=== PATIENT | male | born 1955 | race Caucasian/White ===

== ENCOUNTER 2017-07-25 12:17 | Emergency (ER) | payer BC ==
[~2017-07-25] VITALS: Ht 175.3 cm; Wt 129.5 kg
[~2017-07-25 12:17] MED LIST: BENICAR; COREG 3.123.125 MG/T PO; MEDROL 4MG DOSPA4 MG PO; NABUMETONE; NORVASC; NORVASC 10MG10 MG PO; PERCOCET 325 MG1 TA2 PO; PERCOCET 325 MG1 TAB PO; PLAQUENIL 200M200 MG PO; [UNRECOGNIZED DRUG - OTHER]
[2017-07-25 12:22] VITALS: TEMP 98.1
[2017-07-25 13:03] LABS: BASO % 0.6 % (0.0-2.0); EOS # 0.5 (0.0-0.7); EOS % 7.5 % (0-4.0); GRAN # 3.2 (1.4-6.5); GRAN % 48.6 % (42.2-75.2); HEMATOCRIT 47.8 % (42.0-52.0); LYMPH # 2.1 (1.2-3.4); LYMPH % 31.6 % (20.0-51.0); MEAN CELL VOLUME 96 fl (80.0-100.0); MEAN CORPUSCULAR HEMOGLOBIN 34 pg (27.0-31.0); MEAN CORPUSCULAR HGB CONC 36 g/dl (33.0-37.0); MEAN PLATELET VOLUME 10.7 fl (7.4-10.4); MONO # 0.7 (0.1-0.6); MONO % 11.1 % (1.7-9.3); PLATELET COUNT 142 K/mm3 (130-400); RED BLOOD COUNT 4.98 M/mm3 (4.20-5.60); REDCELL DISTRIBUTION WIDTH-CV 12.4 % (11.5-14.5)
[2017-07-25 13:11] LABS: PARTIAL THROMBOPLASTIN TIME 21.8 SECONDS (26.0-37.0)
[2017-07-25 13:13] LABS: ALANINE AMINOTRANSFERASE 51 U/L (21-72); ALBUMIN 4.6 gm/dL (3.5-5.0); ALKALINE PHOSPHATASE 102 U/L (50-136); ANION GAP 12 mmol/L (7-16); AST,SGOT 40 U/L (15-37); BILIRUBIN,TOTAL 1.1 mg/dL (0.0-1.0); BLOOD UREA NITROGEN 18 mg/dL (9-20); CALCIUM 9.8 mg/dL (8.4-10.2); CARBON DIOXIDE 25 mmol/L (22-30); CHLORIDE 104 mmol/L (98-107); CREATININE, serum 1.03 mg/dL (0.66-1.25); GLUCOSE 114 mg/dL (74-106); POTASSIUM 3.9 mmol/L (3.4-5.0); SODIUM 141 mmol/L (137-145); TOTAL PROTEIN 8.6 gm/dL (6.4-8.2)
[2017-07-25 13:33] LABS: TROPONIN-I < 0.012 ng/mL (0.000-0.034)
[2017-07-25 14:15] VITALS: BP 154/84; PULSE 71
== END 2017-07-25 14:16 | disposition home or self-care (01) ==
LOC: COL.ER 12:17
PROVIDERS: Family Medicine
DX: R07.89 Other chest pain (principal); I10 Essential (primary) hypertension; E78.5 Hyperlipidemia, unspecified

== ENCOUNTER → 2018-12-19 | Outpatient (CLI) | payer BC | LOC: COL.RAD 13:30 | DX: N43.3 Hydrocele, unspecified (principal) ==

== ENCOUNTER 2020-10-21 10:14 | Emergency (ER) | payer BC ==
[~2020-10-21] VITALS: Ht 175.3 cm; Wt 122.7 kg
[2020-10-21 10:22] VITALS: TEMP 98.2
[2020-10-21 10:59] LABS: COLLECTION METHOD CLEAN CATCH
[2020-10-21 11:02] LABS: BASO % 0.6 % (0.0-2.0); EOS # 0.2 (0.0-0.7); EOS % 3.9 % (0-4.0); GRAN # 3.5 (1.4-6.5); GRAN % 65.4 % (42.2-75.2); HEMATOCRIT 47.6 % (42.0-52.0); HEMOGLOBIN 16.5 g/dl (13.5-18.0); LYMPH # 1.1 (1.2-3.4); LYMPH % 19.9 % (20.0-51.0); MEAN CELL VOLUME 95 fl (80.0-100.0); MEAN CORPUSCULAR HEMOGLOBIN 33 pg (27.0-31.0); MEAN CORPUSCULAR HGB CONC 35 g/dl (33.0-37.0); MEAN PLATELET VOLUME 10.7 fl (7.4-10.4); MONO # 0.5 (0.1-0.6); MONO % 9.5 % (1.7-9.3); PLATELET COUNT 165 K/mm3 (130-400); RED BLOOD COUNT 5.02 M/mm3 (4.20-5.60); REDCELL DISTRIBUTION WIDTH-CV 12.8 % (11.5-14.5)
[2020-10-21 11:07] LABS: PH 8 (5-8); SQUAMOUS EPITHELIAL None Seen /hpf; URINE APPEARANCE Clear; URINE BACTERIA None Seen /hpf; URINE BILIRUBIN Negative (NEGATIVE); URINE BLOOD Negative (NEGATIVE); URINE COLOR Straw; URINE GLUCOSE Negative (NEGATIVE); URINE KETONE Negative (NEGATIVE); URINE LEUKOCYTE ESTERASE Negative (NEGATIVE); URINE NITRATE Negative (NEGATIVE); URINE PROTEIN(semi-quant) 2+ (NEGATIVE); URINE RBC 0-2 /hpf; URINE UROBILINOGEN Negative (NEGATIVE)
[2020-10-21 11:21] LABS: ALANINE AMINOTRANSFERASE 35 U/L (4-49); ALBUMIN 4.3 gm/dL (3.5-5.0); ALKALINE PHOSPHATASE 108 U/L (50-136); ANION GAP 10 mmol/L (7-16); AST,SGOT 37 U/L (15-37); BILIRUBIN,TOTAL 1.5 mg/dL (0.0-1.0); BLOOD UREA NITROGEN 15 mg/dL (9-20); CALCIUM 9.3 mg/dL (8.4-10.2); CARBON DIOXIDE 25 mmol/L (22-30); CHLORIDE 102 mmol/L (98-107); CREATININE, serum 0.95 (0.66-1.25); GLUCOSE 162 mg/dL (74-106); POTASSIUM 3.9 mmol/L (3.4-5.0); SODIUM 138 mmol/L (137-145); TOTAL PROTEIN 9.3 gm/dL (6.4-8.2)
[2020-10-21 11:23] LABS: C-REACTIVE PROTEIN < 0.5 mg/dL (0.0-0.9)
[2020-10-21 11:44] LABS: TROPONIN-I < 0.012 ng/mL (0.000-0.035)
[2020-10-21] MEDS ORDERED: PERCOCET 325 MG1 TA2 PO (12:40)
[2020-10-21 12:57] VITALS: BP 158/79; PULSE 97
== END 2020-10-21 13:44 | disposition home or self-care (01) ==
LOC: COL.ER 10:14
PROVIDERS: Nurse Practitioner
DX: R10.31 Right lower quadrant pain (principal); N40.0 Benign prostatic hyperplasia without lower urinary tract symptoms; R11.0 Nausea; I10 Essential (primary) hypertension
CPT/HCPCS: J0360; J1170; J2405; J7030; Q9967

== ENCOUNTER → 2021-11-20 | Outpatient (CLI) | payer MEDICARE | LOC: DIA.ED 09:30 | DX: E11.65 Type 2 diabetes mellitus with hyperglycemia (principal); Z79.84 Long term (current) use of oral hypoglycemic drugs; I10 Essential (primary) hypertension; E78.5 Hyperlipidemia, unspecified | CPT/HCPCS: G0108 ==

== ENCOUNTER → 2021-12-20 | Outpatient (CLI) | payer MEDICARE | LOC: DIA.ED 08:18 | DX: E11.65 Type 2 diabetes mellitus with hyperglycemia (principal); Z79.84 Long term (current) use of oral hypoglycemic drugs; E78.5 Hyperlipidemia, unspecified; I10 Essential (primary) hypertension | CPT/HCPCS: G0108 ==

== ENCOUNTER 2022-03-22 22:17 | Emergency (ER) | payer SELFPAY ==
[~2022-03-22] VITALS: Ht 175.3 cm; Wt 121.4 kg
[2022-03-22 22:33] VITALS: TEMP 98.6
[2022-03-22] MEDS ORDERED: NORCO 325 MG-51 TAB PO (23:24)
[2022-03-22 23:53] VITALS: BP 124/70; PULSE 68
== END 2022-03-22 23:53 | disposition home or self-care (01) ==
LOC: COL.ER 22:17
DX: S22.42XA Multiple fractures of ribs, left side, initial encounter for closed fracture (principal); W18.30XA Fall on same level, unspecified, initial encounter; W22.8XXA Striking against or struck by other objects, initial encounter
CPT/HCPCS: A9284; J1885

== ENCOUNTER 2022-07-27 15:31 | Emergency (ER) | payer SELFPAY ==
[~2022-07-27] VITALS: Ht 177.8 cm; Wt 118.2 kg
[~2022-07-27 15:31] MED LIST changes: +NORCO 325 MG-51 TAB PO
[2022-07-27 15:54] VITALS: TEMP 97.6
[2022-07-27 19:26] VITALS: BP 140/78; PULSE 112
== END 2022-07-27 19:26 | disposition home or self-care (01) ==
LOC: COL.ER 15:31
DX: S06.0X0A Concussion without loss of consciousness, initial encounter (principal); S00.01XA Abrasion of scalp, initial encounter; W01.198A Fall on same level from slipping, tripping and stumbling with subsequent striking against other object, initial encounter; Y93.01 Activity, walking, marching and hiking

== ENCOUNTER 2023-09-20 12:44 | Emergency (ER) | payer MEDICARE ==
[~2023-09-20] VITALS: Ht 175.3 cm; Wt 106.8 kg
[~2023-09-20 12:44] MED LIST changes: +ASPI325T6 PO; +ASPIRIN 81M81 MG/TA2 PO; +CELEBREX 200MG200 MG PO; +CERTAVITE SENI1 EACH PO; +COMTAN 200MG T200 MG PO; +COREG 6.256.25 MG/TA PO; +CUBICIN 500MG500 MG IV; +FLOMAX 0.40.4 MG/CAP PO; +FOLIC ACID 11 MG/TA1 PO; +GLUCOPHAGE500 MG/TAB PO; +HCTZ 25MG TAB25 MG PO; +MASON NATURAL2000 IU PO; +METHOTREXA2.5 MG/TAB PO; +NORMAL SALINE FL1 ML IV; +PRISTIQ 50 MG T50 MG PO; +PROTONIX 40MG T40 MG PO; +SINEMET 25/101 UDTAB PO; +TYLENOL 500MG500 MG PO; +ULTRAM 50MG TAB50 MG PO; +VANCO 1.51.5 GM/250 IV; +VANCOCIN HCL1 GM IV; +VIIBRYD40 MG PO; +WALKER MC; +ZITHROMAX Z PA250 MG PO
[2023-09-20 12:57] VITALS: TEMP 97.7
--- NOTE | 2023-09-20 14:11 | NUR ---
forensic social worker recieved a call from TIAN Burrows to speak with pt and about resources due to fall from increased weakness related to Parkinson's Disease. SW met with pt and at bedside. Pt reports he is already connected with the outpatient Parkinson's program through [facility] for ST and PT. had further questions about available resources. SW discussed Home Health, SNF, LTC, or assisted living as the wide range. They declined HH after SW provided additional information. They report to just wanting to be aware of all options. SW discussed private duty or companionship options. SW stated that [facility] offers this, so they can discuss with the department when they attend their program there. SW provided information on [employer] as stated the fall outside occurred when she was not home. showed SW pt's phone and how it was changed to be more accessible in an urgent situation. SW provided situations where [employer] could be helpful. said she would consider this. Pt and did not want resources at this time, just information to make note of.
[2023-09-20 14:16] VITALS: BP 132/71; PULSE 71
== END 2023-09-20 14:18 | disposition home or self-care (01) ==
LOC: COL.ER 12:44
DX: S09.90XA Unspecified injury of head, initial encounter (principal); S01.01XA Laceration without foreign body of scalp, initial encounter; E66.9 Obesity, unspecified; Z68.34 Body mass index [BMI] 34.0-34.9, adult; W18.30XA Fall on same level, unspecified, initial encounter; W22.8XXA Striking against or struck by other objects, initial encounter; Y92.007 Garden or yard of unspecified non-institutional (private) residence as the place of occurrence of the external cause

== ENCOUNTER 2023-12-19 10:16 | Emergency (ER) | payer MEDICARE ==
[2023-12-19 10:24] VITALS: TEMP 98.4
[2023-12-19] MEDS ORDERED: fentaNYL 50 MCG/ML 2 ML VIAL IV ONE (10:45)
[2023-12-19] MEDS ORDERED: NS 500 ML IV ONE (11:00)
[2023-12-19 13:18] VITALS: BP 120/76; PULSE 79
--- NOTE | 2023-12-19 16:33 | NUR ---
offal worker met with patient and spouse, Lucina #[phone] and provided Medicare.gov share for group home and home health care options. Worker also provided brochures for hand etcher helper in the home. Patient has parkinsons and is attending the parkinsons programs at [facility]. Lucina states that her children are local and help out, however, patient is falling and injuring himself and they are having a difficult time managing. Worker encouraged to contact the local facilities to see if they offer, day services as spouse is not ready for group home placement. Worker offered emotional support and also contacted Lolis with Dr Spear's office and requested that Dr Spear see patient soon and assist with care decisions that need to be made that will support the spouse. Worker collaborated with Gaetano, the ED nurse regarding the above information.
== END 2023-12-19 13:19 | disposition home or self-care (01) ==
LOC: COL.ER 10:16
DX: S43.005A Unspecified dislocation of left shoulder joint, initial encounter (principal); W18.30XA Fall on same level, unspecified, initial encounter; Y92.009 Unspecified place in unspecified non-institutional (private) residence as the place of occurrence of the external cause
CPT/HCPCS: J2704; J3010; J7040

== ENCOUNTER 2023-12-20 18:20 | Emergency (ER) | payer MEDICARE ==
[~2023-12-20] VITALS: Ht 175.3 cm; Wt 111.4 kg
[2023-12-20 18:30] VITALS: TEMP 97.9
[2023-12-20] MEDS ORDERED: fentaNYL 50 MCG/ML 2 ML VIAL IV ONE (19:00)
[2023-12-20 20:15] VITALS: BP 145/80; PULSE 89
== END 2023-12-20 20:16 | disposition home or self-care (01) ==
LOC: COL.ER 18:20
DX: S43.005A Unspecified dislocation of left shoulder joint, initial encounter (principal); W18.30XA Fall on same level, unspecified, initial encounter; Y92.009 Unspecified place in unspecified non-institutional (private) residence as the place of occurrence of the external cause
CPT/HCPCS: J2704; J3010

== ENCOUNTER 2024-01-22 17:27 | Emergency (ER) | payer MEDICARE ==
[~2024-01-22] VITALS: Ht 175.3 cm; Wt 109.1 kg
[2024-01-22 17:46] VITALS: TEMP 97.4
[2024-01-22] MEDS ORDERED: Morphine 4 MG/ML VIAL IV ONE (19:15)
[2024-01-22] MEDS ORDERED: Ondansetron 4 MG/2 ML VIAL IV ONE (19:15)
[2024-01-22] MEDS ORDERED: Midazolam 2 MG/2 ML VIAL IV ONE (20:00)
[2024-01-22 21:52] VITALS: BP 114/83; PULSE 93
== END 2024-01-22 21:52 | disposition home or self-care (01) ==
LOC: COL.ER 17:27
DX: M24.412 Recurrent dislocation, left shoulder (principal)
CPT/HCPCS: J2250; J2270; J2405; J2704

== ENCOUNTER 2024-01-25 14:41 | Emergency (ER) | payer MEDICARE ==
[~2024-01-25] VITALS: Ht 175.3 cm; Wt 111.4 kg
[2024-01-25 14:46] VITALS: TEMP 97.7
[2024-01-25 17:17] VITALS: BP 142/89; PULSE 75
== END 2024-01-25 17:17 | disposition home or self-care (01) ==
LOC: COL.ER 14:41
DX: M24.412 Recurrent dislocation, left shoulder (principal)
CPT/HCPCS: J2704

== ENCOUNTER 2024-01-25 22:22 | Emergency (ER) | payer MEDICARE ==
[2024-01-25 22:35] VITALS: TEMP 98.3
[2024-01-25] MEDS ORDERED: Morphine 4 MG/ML VIAL IV ONE (22:45)
[2024-01-25] MEDS ORDERED: Ondansetron 4 MG/2 ML VIAL IV ONE (22:45)
[2024-01-25 23:45] VITALS: BP 125/85; PULSE 89
== END 2024-01-25 23:45 | disposition home or self-care (01) ==
LOC: COL.ER 22:22
DX: S43.005A Unspecified dislocation of left shoulder joint, initial encounter (principal); X58.XXXA Exposure to other specified factors, initial encounter
CPT/HCPCS: J2270; J2405

== ENCOUNTER 2024-03-10 17:59 | Emergency (ER) | payer MEDICARE ==
[~2024-03-10] VITALS: Ht 175.3 cm; Wt 97.7 kg
[2024-03-10 18:04] VITALS: TEMP 97.7
[2024-03-10 19:34] LABS: BASO % 0.3 % (0.0-2.0); EOS # 0.2 K/mm3 (0.0-0.7); EOS % 3.2 % (0.0-4.0); GRAN # 3.6 K/mm3 (1.4-6.5); GRAN % 60.1 % (42.2-75.2); HEMOGLOBIN 12.3 g/dl (13.5-18.0); LYMPH # 1.6 K/mm3 (1.2-3.4); MEAN CELL VOLUME 101 fl (80.0-100.0); MEAN CORPUSCULAR HEMOGLOBIN 35 pg (27-31); MEAN CORPUSCULAR HGB CONC 34 g/dl (33.0-37.0); MEAN PLATELET VOLUME 9.8 fl (7.4-10.4); MONO # 0.6 K/mm3 (0.1-0.6); MONO % 9.7 % (1.7-9.3); PLATELET COUNT 209 K/mm3 (130-400); RED BLOOD COUNT 3.55 M/mm3 (4.20-5.60); REDCELL DISTRIBUTION WIDTH-CV 14.2 % (11.5-14.5)
[2024-03-10 19:35] LABS: INR 1.1 (0.8-3.0); PROTHROMBIN TIME 12.2 SECONDS (9.7-12.8)
[2024-03-10 19:36] LABS: HEMATOCRIT 35.9 % (42.0-52.0)
[2024-03-10 19:46] LABS: CALCIUM 9.2 mg/dL (8.4-10.2); CREATININE, serum 1.61 mg/dL (0.72-1.25); POTASSIUM 4.3 mEq/L (3.5-4.5); TOTAL PROTEIN 8.2 g/dl (6.2-8.1)
[2024-03-10 19:52] LABS: TROPONIN-I 0.018 ng/mL (0.00-0.033)
[2024-03-10] MEDS ORDERED: NS 1,000 ML IV ONE (20:15)
[2024-03-10 20:30] LABS: COLLECTION METHOD CLEAN CATCH
[2024-03-10 20:34] LABS: PH 5.5 (5.0-8.5); URINE APPEARANCE CLEAR (CLEAR/HAZY); URINE BLOOD NEGATIVE (NEGATIVE); URINE COLOR YELLOW (YELLOW); URINE GLUCOSE NEGATIVE (NEGATIVE); URINE KETONE NEGATIVE (NEGATIVE); URINE NITRATE NEGATIVE (NEGATIVE); URINE PROTEIN(semi-quant) NEGATIVE (NEGATIVE)
[2024-03-10 21:15] VITALS: BP 143/93; PULSE 96
== END 2024-03-10 21:35 | disposition home or self-care (01) ==
LOC: COL.ER 17:59
PROVIDERS: Nurse Practitioner Primary Care
DX: R41.0 Disorientation, unspecified (principal)
CPT/HCPCS: J7030

== ENCOUNTER 2024-04-25 09:43 | Emergency (ER) | payer MEDICARE ==
[~2024-04-25] VITALS: Ht 177.8 cm; Wt 97.7 kg
[2024-04-25 09:49] VITALS: TEMP 97.7
[2024-04-25 13:32] LABS: BASO % 0.7 % (0.0-2.0); EOS # 0.5 K/mm3 (0.0-0.7); GRAN # 3.1 K/mm3 (1.4-6.5); GRAN % 53.9 % (42.2-75.2); HEMOGLOBIN 11.2 g/dl (13.5-18.0); LYMPH # 1.8 K/mm3 (1.2-3.4); LYMPH % 30.6 % (20.0-51.0); MEAN CELL VOLUME 104 fl (80.0-100.0); MEAN CORPUSCULAR HEMOGLOBIN 35 pg (27-31); MEAN CORPUSCULAR HGB CONC 33 g/dl (33.0-37.0); MEAN PLATELET VOLUME 9.9 fl (7.4-10.4); MONO # 0.4 K/mm3 (0.1-0.6); MONO % 6.6 % (1.7-9.3); PLATELET COUNT 151 K/mm3 (130-400); RED BLOOD COUNT 3.25 M/mm3 (4.20-5.60); REDCELL DISTRIBUTION WIDTH-CV 14.2 % (11.5-14.5)
[2024-04-25 13:33] LABS: HEMATOCRIT 33.9 % (42.0-52.0)
[2024-04-25 13:58] LABS: ALBUMIN 2.4 g/dL (3.4-4.8); ALKALINE PHOSPHATASE 118 U/L (40-150); ANION GAP 9 mmol/L (7-16); AST,SGOT 24 U/L (5-34); BLOOD UREA NITROGEN 17 mg/dL (8-26); CALCIUM 8.3 mg/dL (8.4-10.2); CHLORIDE 114 mEq/L (98-107); CREATININE, serum 1.47 mg/dL (0.72-1.25); GLUCOSE 98 mg/dL (70-99); POTASSIUM 4.3 mEq/L (3.5-4.5); SODIUM 144 mEq/L (136-145); TOTAL PROTEIN 7.9 g/dl (6.2-8.1)
[2024-04-25 13:59] LABS: ALANINE AMINOTRANSFERASE < 6 U/L (0-55)
[2024-04-25] MEDS ORDERED: levETIRAcetam 1,000 MG in Syringe 1 EACH IV ONE (14:00)
[2024-04-25] MEDS ORDERED: KEPPRA 500MG500 MG PO (14:01)
[2024-04-25 14:23] LABS: BILIRUBIN,TOTAL 0.8 mg/dL (0.2-1.2)
[2024-04-25] MEDS ORDERED: levETIRAcetam 500 MG TAB PO ONE (17:45)
[2024-04-25 17:50] VITALS: BP 147/78; PULSE 74
== END 2024-04-25 17:50 | disposition home or self-care (01) ==
LOC: COL.ER 09:43
PROVIDERS: Physician Assistant
DX: S06.5X0A Traumatic subdural hemorrhage without loss of consciousness, initial encounter (principal); S01.112A Laceration without foreign body of left eyelid and periocular area, initial encounter; Z79.899 Other long term (current) drug therapy; W05.0XXA Fall from non-moving wheelchair, initial encounter
CPT/HCPCS: J1953